=== PATIENT | female | born 1930 | race Caucasian/White ===

== ENCOUNTER 2016-09-14 08:51 | Emergency (ER) | payer OTHER ==
[2016-09-14 09:21] LABS: URINE CULTURE NEEDED? NO; URINE MICRO REVIEW NEEDED? NO; URINE SOURCE CLEAN CATCH
[2016-09-14 09:25] LABS: BILIRUBIN URINE NEGATIVE (NEGATIVE); BLOOD URINE SMALL (NEGATIVE); COLOR ORANGE; GLUCOSE URINE NEGATIVE (NEGATIVE); LEUKOCYTES URINE NEGATIVE (NEGATIVE); NITRITE URINE NEGATIVE (NEGATIVE); PH URINE 8.5; PROTEIN URINE TRACE mg/dL (NEGATIVE); SP GRAVITY URINE 1.013; TURBIDITY URINE TURBID (CLEAR); UROBILINOGEN URINE NORMAL (NORMAL)
[2016-09-14 09:27] LABS: UR EPITHELIAL CELLS <10 /HPF (<10); URINE BACTERIA NEGATIVE /HPF; URINE WBC <10 /HPF (<10)
--- NOTE | 2016-09-14 11:29 | PROVIDER DOCUMENTATION ---
HPI-Female /OB/Breast - General Chief Complaint: Flank Pain Stated Complaint: RT FLANK PAIN/VOMITING Time Seen by Provider: 09/14/16 11:01 Source: reports: patient Allergies/Adverse Reactions: Patient Allergies Allergy/AdvReac Type Severity Reaction Status Date / Time clindamycin Allergy Intermediate BLISTERS Verified 05/01/16 06:55 IN MOUTH Penicillins Allergy Intermediate RASH Verified 05/01/16 06:55 cephalexin monohydrate * AdvReac Intermediate NAUSEA Verified 05/01/16 06:55 [From Keflex] sulfamethoxazole AdvReac Intermediate NAUSEA Verified 05/01/16 06:55 [From Bactrim] trimethoprim [From Bactrim] AdvReac Intermediate NAUSEA Verified 05/01/16 06:55 Home Medications: Omeprazole [Prilosec] 20 mg PO DAILY@0700 11/25/13 Anastrozole [Arimidex] 1 mg PO DAILY 07/03/14 Citalopram [Celexa] 20 mg PO DAILY 07/03/14 Diazepam [Valium] 2 mg PO HS 07/03/14 Propafenone HCl [Rythmol] 225 mg PO TID 09/06/14 Amlodipine Besylate 5 mg PO DAILY 02/19/15 Multivitamin [Daily Vitamin] 1 each PO DAILY 02/19/15 Pravastatin Sodium 20 mg PO QHS 02/19/15 Warfarin Sodium [Coumadin] 3 mg PO DIRECTED 05/01/16 - History of Present Illness-Female /OB Nature of Presenting Problem: 85 yo WF c/o RLQ pain and vomiting. No history of stone or gross hematuria. Currently on Coumadin Does patient report she is ?: No Location of complaint: reports: RLQ Radiation: reports: none Quality of Pain: reports: pressure, sharp Severity in ED: reports: mild Onset/Duration: reports: abrupt, this morning Timing: reports: still present Context/Activities at Onset: reports: none Vaginal Symptoms: reports: no symptoms Vaginal Bleeding Amount: None Urinary Symptoms: reports: dribbling Related Symptoms: reports: no symptoms Leakage of Fluid: none Associated Symptoms: reports: vomiting Similar Symptoms Previously?: No - LMP/ History Menstrual Status: post-menopausal Review of Systems - Adult - REVIEW OF SYSTEMS - ADULT Constitutional: reports: no symptoms reported Eyes: reports: no symptoms reported Ears, Nose, Mouth & Throat: reports: hearing loss Respiratory: reports: no symptoms reported Gastrointestinal: reports: vomiting Genitourinary: reports: see HPI Integumentary: reports: no symptoms reported Neurological: reports: no symptoms reported Psychiatric: reports: no symptoms reported Endocrine: reports: no symptoms reported Hematologic/Lymphatic: reports: no symptoms reported Allergic/Immunologic: reports: no symptoms reported Past History - Adult - PAST MEDICAL HISTORY-ADULT Review of Records: reports: Old Records Reviewed, Social history reviewed & non- contributory. Cardiovascular: reports: A-Fib, CHF, HTN, hyperlipidemia Gastrointestinal: reports: diverticulosis Obstetrical/Gynecological: reports: other (Breast CA (right)) - PRIOR SURGERIES/PROCEDURES Surgical/Procedure History: reports: appendectomy, hysterectomy, joint replacement (right), other (carpal tunnel) - IMMUNIZATION STATUS Childhood Immunizations: See Nurse Assessment Flu Vaccine: See Nurse Assessment Physical Exam-General - PHYSICAL EXAM-ADULT Initial Vital Signs Reviewed: Yes - CONSTITUTIONAL General Appearance: appears well, alert, no apparent distress, thin - EYES Eyes: PERRL/EOMI - HEAD, EARS, NOSE, MOUTH & THROAT HENMT: normocephalic/atraumatic, moist mucous membranes - NECK Neck: non-tender, full range of motion, supple - RESPIRATORY Respiratory: chest non-tender, lungs clear - CARDIOVASCULAR Cardiovascular: irregularly irregular - CHEST (BREASTS) Chest/Breast: other (rt mastectomy) - GASTROINTESTINAL (ABDOMEN) Abdominal Exam: normal bowel sounds, no organomegaly, no pulsatile mass, tenderness (RLQ) - LYMPHATIC Lymphatic: no adenopathy - MUSCULOSKELETAL Back Exam: normal inspection, no CVA tenderness, no vertebral tenderness Extremity: normal range of motion, swelling - SKIN Integumentary: normal color - NEUROLOGIC Neurologic: grossly normal - PSYCHIATRIC Psych/Mental Status: normal mood/affect Progress - PLAN OF CARE/RESULTS Progress/Plan/Lab Results: Laboratory Tests 09/14/16 09/14/16 09/14/16 09:00 11:27 11:27 WBC 8.78 RBC 4.71 Hgb 14.2 Hct 43.3 MCV 91.9 MCH 30.1 MCHC 32.8 L RDW Std Deviation 13.3 Plt Count 241 MPV 9.1 Immature Gran % (Auto) 0.0 Neut % (Auto) 72.0 Lymph % (Auto) 18.5 L [place] % (Auto) 7.6 Eos % (Auto) 1.6 Baso % (Auto) 0.3 Immature Gran # (Auto) 0.00 Neut # (Auto) 6.32 Lymph # (Auto) 1.62 [place] # (Auto) 0.67 H Eos # (Auto) 0.14 Baso # (Auto) 0.03 PT INR Sodium 140 Potassium 3.9 Chloride 98 Carbon Dioxide 30 Anion Gap 12 BUN 17 Creatinine 0.7 Estimated GFR/1.73 m2 > 60 BUN/Creatinine Ratio 24 Glucose 101 Calculated Osmolality 281 Calcium 9.0 Total Bilirubin 0.60 AST 21 ALT 16 Alkaline Phosphatase 80 Total Protein 7.4 Albumin 4.3 Globulin 3.1 Albumin/Globulin Ratio 1.4 Urine Source CLEAN CATCH Urine Color ORANGE Urine Turbidity TURBID Urine pH 8.5 Ur Specific [place] 1.013 Urine Protein TRACE A Ur Glucose (Stick) NEGATIVE Ur Ketones (Stick) NEGATIVE Urine Blood SMALL A Urine Nitrite NEGATIVE Urine Bilirubin NEGATIVE Urobilinogen Dipstick NORMAL Urine Leukocytes NEGATIVE Urine WBC (Auto) <10 Urine RBC (Auto) 10-20 A U Epithel Cells (Auto) <10 Urine Bacteria (Auto) NEGATIVE 09/14/16 11:27 WBC RBC Hgb Hct MCV MCH MCHC RDW Std Deviation Plt Count MPV Immature Gran % (Auto) Neut % (Auto) Lymph % (Auto) [place] % (Auto) Eos % (Auto) Baso % (Auto) Immature Gran # (Auto) Neut # (Auto) Lymph # (Auto) [place] # (Auto) Eos # (Auto) Baso # (Auto) PT 16.3 H INR 1.53 Sodium Potassium Chloride Carbon Dioxide Anion Gap BUN Creatinine Estimated GFR/1.73 m2 BUN/Creatinine Ratio Glucose Calculated Osmolality Calcium Total Bilirubin AST ALT Alkaline Phosphatase Total Protein Albumin Globulin Albumin/Globulin Ratio Urine Source Urine Color Urine Turbidity Urine pH Ur Specific [place] Urine Protein Ur Glucose (Stick) Ur Ketones (Stick) Urine Blood Urine Nitrite Urine Bilirubin Urobilinogen Dipstick Urine Leukocytes Urine WBC (Auto) Urine RBC (Auto) U Epithel Cells (Auto) Urine Bacteria (Auto) Vital Signs Temp Pulse Resp BP Pulse Ox 09/14/16 12:38 127/69 09/14/16 09:02 97.5 F L 84 16 139/88 100 clindamycin Allergy (Intermediate, Verified 05/01/16 06:55) BLISTERS IN MOUTH Penicillins Allergy (Intermediate, Verified 05/01/16 06:55) RASH cephalexin monohydrate * [From Keflex] Adverse Reaction (Intermediate, Verified 05/01/16 06:55) NAUSEA sulfamethoxazole [From Bactrim] Adverse Reaction (Intermediate, Verified 06:55) NAUSEA trimethoprim [From Bactrim] Adverse Reaction (Intermediate, Verified 05/01/16 06 :55) NAUSEA Omeprazole [Prilosec] 20 mg PO DAILY@0700 11/25/13 Anastrozole [Arimidex] 1 mg PO DAILY 07/03/14 Citalopram [Celexa] 20 mg PO DAILY 07/03/14 Diazepam [Valium] 2 mg PO HS 07/03/14 Propafenone HCl [Rythmol] 225 mg PO TID 09/06/14 Amlodipine Besylate 5 mg PO DAILY 02/19/15 Multivitamin [Daily Vitamin] 1 each PO DAILY 02/19/15 Pravastatin Sodium 20 mg PO QHS 02/19/15 Metoprolol Succinate E.r. [Toprol Xl] 25 mg PO DAILY #30 tablet 07/29/15 Warfarin Sodium [Coumadin] 3 mg PO DIRECTED 05/01/16 I&O 09/13/16 09/14/16 09/15/16 06:59 06:59 06:59 Output Total 10 Balance -10 Laboratory 09/14/16 09/14/16 09/14/16 11:27 11:27 11:27 WBC 8.78 RBC 4.71 Hgb 14.2 Hct 43.3 MCV 91.9 MCH 30.1 MCHC 32.8 L RDW Std Deviation 13.3 Plt Count 241 MPV 9.1 Immature Gran % (Auto) 0.0 Neut % (Auto) 72.0 Lymph % (Auto) 18.5 L [place] % (Auto) 7.6 Eos % (Auto) 1.6 Baso % (Auto) 0.3 Immature Gran # (Auto) 0.00 Neut # (Auto) 6.32 Lymph # (Auto) 1.62 [place] # (Auto) 0.67 H Eos # (Auto) 0.14 Baso # (Auto) 0.03 PT 16.3 H INR 1.53 Sodium 140 Potassium 3.9 Chloride 98 Carbon Dioxide 30 Anion Gap 12 BUN 17 Creatinine 0.7 Estimated GFR/1.73 m2 > 60 BUN/Creatinine Ratio 24 Glucose 101 Calculated Osmolality 281 Calcium 9.0 Total Bilirubin 0.60 AST 21 ALT 16 Alkaline Phosphatase 80 Total Protein 7.4 Albumin 4.3 Globulin 3.1 Albumin/Globulin Ratio 1.4 Urine Source Urine Color Urine Turbidity Urine pH Ur Specific [place] Urine Protein Ur Glucose (Stick) Ur Ketones (Stick) Urine Blood Urine Nitrite Urine Bilirubin Urobilinogen Dipstick Urine Leukocytes Urine WBC (Auto) Urine RBC (Auto) U Epithel Cells (Auto) Urine Bacteria (Auto) 09/14/16 09:00 WBC RBC Hgb Hct MCV MCH MCHC RDW Std Deviation Plt Count MPV Immature Gran % (Auto) Neut % (Auto) Lymph % (Auto) [place] % (Auto) Eos % (Auto) Baso % (Auto) Immature Gran # (Auto) Neut # (Auto) Lymph # (Auto) [place] # (Auto) Eos # (Auto) Baso # (Auto) PT INR Sodium Potassium Chloride Carbon Dioxide Anion Gap BUN Creatinine Estimated GFR/1.73 m2 BUN/Creatinine Ratio Glucose Calculated Osmolality Calcium Total Bilirubin AST ALT Alkaline Phosphatase Total Protein Albumin Globulin Albumin/Globulin Ratio Urine Source CLEAN CATCH Urine Color ORANGE Urine Turbidity TURBID Urine pH 8.5 Ur Specific [place] 1.013 Urine Protein TRACE A Ur Glucose (Stick) NEGATIVE Ur Ketones (Stick) NEGATIVE Urine Blood SMALL A Urine Nitrite NEGATIVE Urine Bilirubin NEGATIVE Urobilinogen Dipstick NORMAL Urine Leukocytes NEGATIVE Urine WBC (Auto) <10 Urine RBC (Auto) 10-20 A U Epithel Cells (Auto) <10 Urine Bacteria (Auto) NEGATIVE Vital Signs Temp Pulse Resp BP Pulse Ox 09/14/16 12:38 127/69 09/14/16 09:02 97.5 F L 84 16 139/88 100 clindamycin Allergy (Intermediate, Verified 05/01/16 06:55) BLISTERS IN MOUTH Penicillins Allergy (Intermediate, Verified 05/01/16 06:55) RASH cephalexin monohydrate * [From Keflex] Adverse Reaction (Intermediate, Verified 05/01/16 06:55) NAUSEA sulfamethoxazole [From Bactrim] Adverse Reaction (Intermediate, Verified 06:55) NAUSEA trimethoprim [From Bactrim] Adverse Reaction (Intermediate, Verified 05/01/16 06 :55) NAUSEA Omeprazole [Prilosec] 20 mg PO DAILY@0700 11/25/13 Anastrozole [Arimidex] 1 mg PO DAILY 10/23/14 Citalopram [Celexa] 20 mg PO DAILY 07/03/14 Diazepam [Valium] 2 mg PO HS 07/03/14 Propafenone HCl [Rythmol] 225 mg PO TID 09/06/14 Amlodipine Besylate 5 mg PO DAILY 02/19/15 Multivitamin [Daily Vitamin] 1 each PO DAILY 02/19/15 Pravastatin Sodium 20 mg PO QHS 02/19/15 Metoprolol Succinate E.r. [Toprol Xl] 25 mg PO DAILY #30 tablet 07/29/15 Warfarin Sodium [Coumadin] 3 mg PO DIRECTED 05/01/16 I&O 09/13/16 09/14/16 09/15/16 06:59 06:59 06:59 Output Total 10 Balance -10 Laboratory 09/14/16 09/14/16 09/14/16 11:27 11:27 11:27 WBC 8.78 RBC 4.71 Hgb 14.2 Hct 43.3 MCV 91.9 MCH 30.1 MCHC 32.8 L RDW Std Deviation 13.3 Plt Count 241 MPV 9.1 Immature Gran % (Auto) 0.0 Neut % (Auto) 72.0 Lymph % (Auto) 18.5 L [place] % (Auto) 7.6 Eos % (Auto) 1.6 Baso % (Auto) 0.3 Immature Gran # (Auto) 0.00 Neut # (Auto) 6.32 Lymph # (Auto) 1.62 [place] # (Auto) 0.67 H Eos # (Auto) 0.14 Baso # (Auto) 0.03 PT 16.3 H INR 1.53 Sodium 140 Potassium 3.9 Chloride 98 Carbon Dioxide 30 Anion Gap 12 BUN 17 Creatinine 0.7 Estimated GFR/1.73 m2 > 60 BUN/Creatinine Ratio 24 Glucose 101 Calculated Osmolality 281 Calcium 9.0 Total Bilirubin 0.60 AST 21 ALT 16 Alkaline Phosphatase 80 Total Protein 7.4 Albumin 4.3 Globulin 3.1 Albumin/Globulin Ratio 1.4 Urine Source Urine Color Urine Turbidity Urine pH Ur Specific [place] Urine Protein Ur Glucose (Stick) Ur Ketones (Stick) Urine Blood Urine Nitrite Urine Bilirubin Urobilinogen Dipstick Urine Leukocytes Urine WBC (Auto) Urine RBC (Auto) U Epithel Cells (Auto) Urine Bacteria (Auto) 09/14/16 09:00 WBC RBC Hgb Hct MCV MCH MCHC RDW Std Deviation Plt Count MPV Immature Gran % (Auto) Neut % (Auto) Lymph % (Auto) [place] % (Auto) Eos % (Auto) Baso % (Auto) Immature Gran # (Auto) Neut # (Auto) Lymph # (Auto) [place] # (Auto) Eos # (Auto) Baso # (Auto) PT INR Sodium Potassium Chloride Carbon Dioxide Anion Gap BUN Creatinine Estimated GFR/1.73 m2 BUN/Creatinine Ratio Glucose Calculated Osmolality Calcium Total Bilirubin AST ALT Alkaline Phosphatase Total Protein Albumin Globulin Albumin/Globulin Ratio Urine Source CLEAN CATCH Urine Color ORANGE Urine Turbidity TURBID Urine pH 8.5 Ur Specific [place] 1.013 Urine Protein TRACE A Ur Glucose (Stick) NEGATIVE Ur Ketones (Stick) NEGATIVE Urine Blood SMALL A Urine Nitrite NEGATIVE Urine Bilirubin NEGATIVE Urobilinogen Dipstick NORMAL Urine Leukocytes NEGATIVE Urine WBC (Auto) <10 Urine RBC (Auto) 10-20 A U Epithel Cells (Auto) <10 Urine Bacteria (Auto) NEGATIVE - CT/MRI 1 CT Study: Abdomen, Pelvis (Terrible constipation, vaginal wall thickening but no renal stones or hydronephrosis) Departure - Departure Time of Disposition Order: 13:42 DIAGNOSIS: Constipation Qualifiers: Constipation type: unspecified constipation type Qualified Code(s): K59.00 - Constipation, unspecified Disposition: HOME 01 Certified Medical Emergency: Emergent Condition: Good Additional Instructions: I had a long talk with her daughter who will give her a TWE and one bottle of Mag citrate.
[2016-09-14 11:36] LABS: MANUAL DIFF NEEDED? NO
[2016-09-14 11:38] LABS: BASO% 0.3 % (0.0-0.8); EOS# 0.14 X1000 (0.0-0.7); EOS% 1.6 % (0.0-10.0); HEMATOCRIT 43.3 % (37.0-47.0); HEMOGLOBIN 14.2 g/dL (12.0-16.0); LYMPH# 1.62 X1000 (1.2-3.4); LYMPH% 18.5 % (20.5-51.1); MCH 30.1 PG (27-31); MCHC 32.8 g/dL (33-37); MCV 91.9 FL (81-99); MONO# 0.67 X1000 (0.11-0.59); MONO% 7.6 % (1.7-9.3); MPV 9.1 FL (7.4-10.4); PLT 241 X1000 (130-400); RBC 4.71 XMIL (4.2-5.4)
[2016-09-14 11:54] LABS: INR 1.53; PROTIME 16.3 Seconds (9.2-11.7)
[2016-09-14 12:05] LABS: AGAP 12; ALBUMIN 4.3 g/dL (3.5-5.0); ALKALINE PHOSPHATASE 80 U/L (32-104); BUN 17 mg/dL (8-22); CHLORIDE 98 mmol/L (98-107); COSMO 281; GOT 21 U/L (10-30); GPT 16 U/L (10-36); POTASSIUM 3.9 mmol/L (3.5-5.1); SODIUM 140 mmol/L (136-145); TCO2 30 mmol/L (25-35); TOTAL PROTEIN 7.4 g/dL (6.3-8.3)
--- NOTE | 2016-09-14 12:43 | Diag Imaging Result Document ---
PROCEDURE NAME: RENAL STONE SEARCH - 09/14/2016 CT ABDOMEN AND PELVIS: COMPARISON: 11/19/2013. FINDINGS: There are no infiltrates in the lung bases. There is a large hiatal hernia, stable from prior. Stable scattered renal cysts. No radiodense renal stones. No hydronephrosis or hydroureter. There is fullness of the left wall of the vagina. Uterus is absent. Urinary bladder and rectum are normal. There is severe constipation. Severe scoliosis. No acute bony lesions. IMPRESSION: 1. Fullness at the left wall of the vagina. Recommend pelvic examination. 2. Severe constipation. 3. Negative for renal stone disease.
[2016-09-14 14:00] VITALS: BP 127/79
== END 2016-09-14 14:00 | disposition home or self-care (01) ==
LOC: ED 08:51
DX: K59.00 Constipation, unspecified (principal); R10.31 Right lower quadrant pain; R11.10 Vomiting, unspecified; M79.89 Other specified soft tissue disorders; H91.90 Unspecified hearing loss, unspecified ear; I48.91 Unspecified atrial fibrillation; I10 Essential (primary) hypertension; E78.5 Hyperlipidemia, unspecified; Z79.01 Long term (current) use of anticoagulants; Z79.899 Other long term (current) drug therapy; Z85.3 Personal history of malignant neoplasm of breast; Z96.60 Presence of unspecified orthopedic joint implant; Z90.11 Acquired absence of right breast and nipple
CPT/HCPCS: 74176; 80053; 81001; 85025; 85610

== ENCOUNTER 2017-04-30 21:52 | Inpatient (IN) ==
[2017-04-30 23:15] LABS: MANUAL DIFF NEEDED? NO
[2017-04-30 23:18] LABS: BASO% 0.1 % (0.0-0.8); EOS# 0.04 X1000 (0.0-0.7); EOS% 0.4 % (0.0-10.0); HEMOGLOBIN 11.8 g/dL (12.0-16.0); IMM GRAN# 0.03 X1000 (0.0-0.04); IMM GRAN% 0.3 % (0.0-0.5); LYMPH# 0.78 X1000 (1.2-3.4); LYMPH% 8.5 % (20.5-51.1); MCH 29.2 PG (27-31); MCHC 32.8 g/dL (33-37); MCV 89.1 FL (81-99); MONO% 9.8 % (1.7-9.3); MPV 9.7 FL (7.4-10.4); NEUT% 80.9 % (42.2-75.2); PLT 181 X1000 (130-400); RBC 4.04 XMIL (4.2-5.4)
[2017-04-30 23:42] LABS: INR 2.34 (0.86-1.15); PROTIME 27.5 Seconds (12.1-15.5)
[2017-04-30 23:43] LABS: PTT PL 39.4 Seconds (22.6-43.9)
[2017-04-30 23:44] LABS: AGAP 13; ALBUMIN 3.8 g/dL (3.5-5.0); ALKALINE PHOSPHATASE 55 U/L (32-104); BUN 19 mg/dL (8-22); CALCIUM 8.4 mg/dL (8.8-10.2); CHLORIDE 105 mmol/L (98-107); COSMO 283; GOT 20 U/L (10-30); GPT 17 U/L (10-36); POTASSIUM 3.6 mmol/L (3.5-5.1); SODIUM 139 mmol/L (136-145); TCO2 21 mmol/L (25-35); TOTAL PROTEIN 6.9 g/dL (6.3-8.3)
[2017-04-30] MEDS ORDERED: LEVAQUIN 500 MG/D5W 500 MG/100 ML IVPB IV ONE (23:54)
[2017-05-01] MEDS: NS 1,000 ML IV PRN ×2 (00:10→15:38)
--- NOTE | 2017-05-01 00:11 | EKG Report ---
Test Performed on : 04/30/2017 10:57:02 PM Test Reason : Chest Pain Blood Pressure : / mmHG Vent. Rate : 087 BPM Atrial Rate : 087 BPM P-R Int : 136 ms QRS Dur : 130 ms QT Int : 392 ms P-R-T Axes : 000 -18 038 degrees QTc Int : 471 ms Normal sinus rhythm. 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
--- NOTE | 2017-05-01 00:29 | PROVIDER DOCUMENTATION ---
This chart was entered by Nupur Ortega Scribe, acting as scribe for Abdoulaye Felix MD. HPI-General Adult - General Chief Complaint: Extremity Pain Stated Complaint: SWOLLEN LT HAND Time Seen by Provider: 04/30/17 23:37 Source: patient, family Unable to obtain history due to:: other (patient hard of hearing) Allergies/Adverse Reactions: Patient Allergies Allergy/AdvReac Type Severity Reaction Status Date / Time clindamycin Allergy Intermediate BLISTERS Verified 01/11/17 14:07 IN MOUTH Penicillins Allergy Intermediate RASH Verified 01/11/17 14:07 cephalexin monohydrate * AdvReac Intermediate NAUSEA Verified 01/11/17 14:07 [From Keflex] sulfamethoxazole AdvReac Intermediate NAUSEA Verified 01/11/17 14:07 [From Bactrim] trimethoprim [From Bactrim] AdvReac Intermediate NAUSEA Verified 01/11/17 14:07 Home Medications: Home Medication List Medication Instructions Recorded Confirmed Last Taken Type Omeprazole [Prilosec] 20 mg PO DAILY@0700 11/25/13 04/30/17 09/13/16 07:00 History 20 MG Anastrozole [Arimidex] 1 mg PO DAILY 07/03/14 04/30/17 09/13/16 07:00 History 1 MG Citalopram [Celexa] 20 mg PO DAILY 07/03/14 04/30/17 09/13/16 07:00 History 20 MG Diazepam [Valium] 2 mg PO HS 07/03/14 04/30/17 09/13/16 07:00 History 2 MG Propafenone HCl [Rythmol] 225 mg PO TID 09/06/14 04/30/17 09/13/16 07:00 History 225 MG Amlodipine Besylate 5 mg PO DAILY 02/19/15 04/30/17 09/13/16 07:00 History 5 MG Multivitamin [Daily Vitamin] 1 each PO DAILY 02/19/15 04/30/17 09/13/16 07:00 History 1 EACH Pravastatin Sodium 20 mg PO QHS 02/19/15 04/30/17 09/13/16 07:00 History 20 MG Metoprolol Succinate E.r. [Toprol 25 mg PO DAILY #30 tablet 07/29/15 04/30/17 07:00 Rx Xl] 25 MG Warfarin Sodium [Coumadin] 3 mg PO DIRECTED 05/01/16 04/30/17 09/13/16 07:00 History 3 MG - History of Present Illness -Gen Adult Nature of Presenting Problems: Patient is an 86 year old female who presents in the ED with daughter with complaints of left hand pain/swelling. Daughter states patient began having swelling of her left hand on morning, and states patient's swelling started at her left first and second finger joints where she has known arthritis. Daughter also states patient was prescribed Cipro on Monday but states she stopped giving the patient the antibiotic after seeing her hand swelling. Daughter reports patient's hand has had increased swelling since onset as well as warmth and redness, and reports patient has taken Tylenol #3 for her pain (prescribed for her arthritis) with no improvement. Patient states she "thinks she may have had chest pain earlier this week." Location of Pain/Injury: reports: hand(s) (left) Pain Radiation: reports: no radiation Quality of Pain: reports: throbbing Severity: reports: moderate Onset/Duration: reports: abrupt, 4 days ago Timing: reports: still present, changing over time, getting worse Context/Activities at Onset: reports: none Modifying Factors: improves with: nothing Associated Symptoms: reports: chest pain Similar Symptoms Previously?: No Recently seen or treated by another doctor?: No Review of Systems - Adult - REVIEW OF SYSTEMS - ADULT Constitutional: reports: no symptoms reported Eyes: reports: no symptoms reported Ears, Nose, Mouth & Throat: reports: no symptoms reported Cardiovascular: reports: chest pain Respiratory: reports: no symptoms reported Gastrointestinal: reports: no symptoms reported Genitourinary: reports: no symptoms reported Musculoskeletal: reports: other (left hand pain/swelling/redness/warmth) Integumentary: reports: no symptoms reported Neurological: reports: no symptoms reported Psychiatric: reports: no symptoms reported Endocrine: reports: no symptoms reported Hematologic/Lymphatic: reports: no symptoms reported Allergic/Immunologic: reports: no symptoms reported All Other Systems: Reviewed and Negative Past History - Adult - PAST MEDICAL HISTORY-ADULT Review of Records: reports: Old Records Reviewed, Nursing Assessment Review, Medications Reviewed Major Childhood Illnesses: reports: denies history Cardiovascular: reports: A-Fib, CHF, HTN, hyperlipidemia Respiratory: reports: denies history Gastrointestinal: reports: diverticulosis Obstetrical/Gynecological: reports: other (Breast CA (right)) Genitourinary: reports: denies history Musculoskeletal: reports: arthritis Neurological: reports: denies history Psychiatric: reports: denies history Endocrine/Immune: reports: denies history 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 - PRIOR SURGERIES/PROCEDURES Surgical/Procedure History: reports: appendectomy, hysterectomy, joint replacement (right), other (carpal tunnel) - IMMUNIZATION STATUS Childhood Immunizations: See Nurse Assessment Flu Vaccine: See Nurse Assessment - FAMILY HISTORY Family History: reviewed, not pertinent - SOCIAL HISTORY Smoking: denies Substance Use: none/never Alcohol Use Frequency: never Living Situation: family Physical Exam-General - PHYSICAL EXAM-ADULT Initial Vital Signs Reviewed: Yes - CONSTITUTIONAL General Appearance: alert, no apparent distress - EYES Eyes: PERRL/EOMI, pink conjunctivae - HEAD, EARS, NOSE, MOUTH & THROAT HENMT: normocephalic/atraumatic, moist mucous membranes - NECK Neck: non-tender, full range of motion, supple, normal inspection - RESPIRATORY Respiratory: chest non-tender, lungs clear, normal breath sounds, no pleuratic chest pain, no respiratory distress, no accessory muscle use - CARDIOVASCULAR Cardiovascular: normal peripheral pulses, no edema, no gallop, no JVD, systolic murmur (2/6), irregularly irregular - GASTROINTESTINAL (ABDOMEN) Abdominal Exam: non tender, soft, no organomegaly, no pulsatile mass - LYMPHATIC Lymphatic: no adenopathy - MUSCULOSKELETAL Back Exam: normal inspection, no CVA tenderness, no vertebral tenderness Extremity: no pedal edema, no calf tenderness, normal capillary refill, pelvis stable, other (left hand with swelling, erythema, warmth to touch, and tenderness to palpation; rheumatoid arthritis of bilateral hands.) - SKIN Integumentary: normal color, normal turgor, warm/dry - NEUROLOGIC Neurologic: grossly normal, no motor/sensory deficits - PSYCHIATRIC Psych/Mental Status: normal mood/affect, oriented x 3 Progress - PLAN OF CARE/RESULTS Progress/Plan/Lab Results: Vital Signs - 8 hr 04/30/17 22:30 Temperature 100.5 F H Pulse Rate 90 Respiratory Rate 20 Blood Pressure 108/64 O2 Sat by Pulse Oximetry 96 Laboratory Results - last 24 hr 04/30/17 04/30/17 04/30/17 22:57 22:57 22:57 WBC 9.23 RBC 4.04 L Hgb 11.8 L Hct 36.0 L MCV 89.1 MCH 29.2 MCHC 32.8 L RDW Std Deviation 14.6 H Plt Count 181 MPV 9.7 Immature Gran % (Auto) 0.3 Neut % (Auto) 80.9 H Lymph % (Auto) 8.5 L [place] % (Auto) 9.8 H Eos % (Auto) 0.4 Baso % (Auto) 0.1 Immature Gran # (Auto) 0.03 Neut # (Auto) 7.47 H Lymph # (Auto) 0.78 L [place] # (Auto) 0.90 H Eos # (Auto) 0.04 Baso # (Auto) 0.01 PT 27.5 H INR 2.34 H APTT (Factor Assay) 39.4 Sodium 139 Potassium 3.6 Chloride 105 Carbon Dioxide 21 L Anion Gap 13 BUN 19 Creatinine 0.8 Estimated GFR/1.73 m2 > 60 BUN/Creatinine Ratio 24 Glucose 165 H Calculated Osmolality 283 Calcium 8.4 L Total Bilirubin 0.40 AST 20 ALT 17 Alkaline Phosphatase 55 Total Protein 6.9 Albumin 3.8 Globulin 3.0 Albumin/Globulin Ratio 1.0 Orders Category Date Time Status CBC WITH DIFF [HEME] Stat Lab 04/30/17 22:57 Completed CK PROFILE [SP CHEM] Stat Lab 04/30/17 22:57 Received COMPREHENSIVE METABOLIC PANEL [CHEM] Stat Lab 04/30/17 22:57 Com[address]IME WITH INR PL [COAG] Routine Lab 04/30/17 22:[address] [COAG] Routine Lab 04/30/17 22:57 Completed TROPONIN T Stat Lab 04/30/17 22:57 Received Result Diagrams: 04/30/17 22:57 04/30/17 22:57 Departure - Departure Date of Disposition Decision: 05/01/17 Time of Disposition Decision: 00:28 DIAGNOSIS: Cellulitis of hand Disposition: ADMITTED INPATIENT 09 Certified Medical Emergency: Emergent Condition: Fair Referrals and Follow-Ups: Nader Mullins MD [Primary Care Provider] - - Critical Care Note This patient required my direct & personal management of CC.: No Attestation - Physician/ ANKUR Attestation Patient care was provided by Advanced Practice Provider:: No The physician spent face to face time with patient:: Yes Advanced Practice Provider documentation review:: Supervising physician onsite and consulted in the evaluation and care of this patient. The physician did have a face to face encounter with the patient. This chart was documented by the indicated scribe, (Nupur Ortega, Levon) and accurately reflects the services I performed and decisions made by me, Abdoulaye Felix MD, as attested by the provider's signature.
[2017-05-01] MEDS ORDERED: LEVAQUIN 500 MG/D5W 500 MG/100 ML IVPB IV SCH (01:06)
[2017-05-01] MEDS: DOXYCYCLINE PO SCH ×2 (04:06→21:01)
[2017-05-01] MEDS: NORCO-7.5 PO PRN ×3 (05:39→21:02)
[2017-05-01] MEDS: NORVASC PO SCH (10:06)
[2017-05-01] MEDS: RYTHMOL SR PO SCH ×3 (10:06→16:22)
[2017-05-01] MEDS: ARIMIDEX PO SCH (10:06)
[2017-05-01] MEDS: THERA M PLUS PO SCH (10:06)
[2017-05-01] MEDS: CELEXA PO SCH (10:07)
[2017-05-01] MEDS: TOPROL XL PO SCH (10:07)
--- NOTE | 2017-05-01 15:12 | HISTORY AND PHYSICAL ---
CHIEF COMPLAINT: Ms. Lewis is a very pleasant 86-year-old female, who presented to the emergency department last night with complaint of having pain and swelling, along with redness that was progressively getting worse for the past 2 days. She denied having any other problems or complaints. She denied having any fever, although she was noted to have low-grade fever at the emergency department. PAST MEDICAL HISTORY: 1. Paroxysmal atrial fibrillation. 2. Congestive heart failure. 3. Coronary artery disease. 4. Hypertension. 5. Dyslipidemia. 6. Gastroesophageal reflux disease. 7. Anxiety disorder. PAST SURGICAL HISTORY: 1. Right radical mastectomy for breast cancer. 2. Appendectomy. 3. Bladder surgery. 4. Bilateral carpal tunnel surgery. 5. Right foot surgery. 6. Total hysterectomy. 7. Rotator cuff surgery on her right shoulder. SOCIAL HISTORY: Patient does not smoke any tobacco products, nor does she drink any alcohol. She does not use any recreational drugs. FAMILY HISTORY: There is family history of Alzheimer's dementia and heart disease. She also has some family members with prostate cancer. ALLERGIES: The patient reports to be allergic to clindamycin, penicillin, Keflex, and sulfa drugs. CURRENT HOME MEDICATIONS: 1. Amlodipine 5 mg orally once daily. 2. Anastrozole 1 mg orally once daily. 3. Citalopram 20 mg orally once daily. 4. Diazepam 2 mg orally once daily at bedtime, as needed for insomnia. 5. Metoprolol ER 25 mg orally once daily. 6. Omeprazole 20 mg orally once daily. 7. Pravastatin 20 mg orally once daily at bedtime. 8. Propafenone 225 mg orally 3 times a day. 9. Multivitamins orally once daily. 10. Tramadol 50 mg three times a day as needed for pain. 11. Warfarin 3-4 mg orally once daily as per the [facility]. REVIEW OF SYSTEMS: A full review of system could not be obtained since patient is a poor historian. PHYSICAL EXAMINATION: VITAL SIGNS: Temperature 98.5 degrees, with a maximum temperature last night of 100.5 degrees Fahrenheit, pulse rate 91 beats per minute, respiratory rate 18 per minute, blood pressure 96/54, pulse ox 96% on room air. GENERAL: Patient is alert and oriented x3. She does not appear to be in any acute distress. HEENT: Within normal limits. NECK: Supple without any thyromegaly. LYMPHATICS: No lymphadenopathy noted in the neck region. CHEST: Chest wall is nontender. CARDIOVASCULAR SYSTEM: First and second heart sounds are audible without any murmurs or gallops. RESPIRATORY SYSTEM: No respiratory distress noted. Bilateral lung air entry is good without any rales or rhonchi. GASTROINTESTINAL SYSTEM: Abdomen is soft and nondistended. It is soft and nontender on palpation. Normal bowel sounds are present. MUSCULOSKELETAL SYSTEM: Range of motion in most of the joints somewhat limited secondary to osteoarthritis. There is some left wrist area and edema, along with tenderness and erythema. NEUROLOGIC: No focal deficits are present. PSYCHIATRIC: Normal affect noted. GENITOURINARY: Deferred. INTEGUMENTARY: Skin in the left distal forearm and left wrist area, along with the left hand, noted to have increased warmth and tenderness on palpation. There is also erythema in the area locally. DIAGNOSTIC DATA: CBC shows WBC count of 9.23, hemoglobin 11.8, hematocrit 36.0, and platelet count 181,000. Neutrophils were found to be 18.9%. INR is within therapeutic range at 2.34 and comprehensive metabolic panel was nondiagnostic, except for glucose level of 165. Troponin levels were negative. An ECG obtained at the emergency department showed sinus rhythm with a ventricular rate of 87 beats per minute and poor R-wave progression. No acute ischemic abnormalities are seen. IMPRESSION: 1. Cellulitis of the left hand and left distal forearm in this 86-year-old female, who also has a fever secondary to cellulitis. 2. Multiple comorbid conditions including hypertension, paroxysmal atrial fibrillation, coronary artery disease, and congestive heart failure. PLAN: Patient is admitted to the medical floor on telemetry and we are going to continue her routine home medications. She has been started on levofloxacin intravenously, along with oral doxycycline which will be continued. Further recommendations will be given as per patient's response to these antibiotics. cc: Nader Mullins MD
[2017-05-01] MEDS ORDERED: BLISTEX MEDICATED BERRY LIP BALM TOP PRN (15:14)
[2017-05-01] MEDS: VALIUM PO SCH (21:01)
[2017-05-01] MEDS: PRAVACHOL PO SCH (21:01)
[2017-05-01] MEDS: COUMADIN PO SCH (21:01)
[2017-05-02] MEDS: LEVAQUIN 500 MG/D5W 500 MG/100 ML IVPB IV SCH (01:14)
[2017-05-02] MEDS: NORCO-7.5 PO PRN ×3 (04:51→22:47)
[2017-05-02] MEDS: PRILOSEC PO SCH (06:09)
[2017-05-02 06:33] LABS: INR 2.26 (0.86-1.15); PROTIME 26.7 Seconds (12.1-15.5)
[2017-05-02] MEDS: TOPROL XL PO SCH (10:11)
[2017-05-02] MEDS: DOXYCYCLINE PO SCH ×2 (10:11→20:19)
[2017-05-02] MEDS: THERA M PLUS PO SCH (10:11)
[2017-05-02] MEDS: NORVASC PO SCH (10:11)
[2017-05-02] MEDS: RYTHMOL SR PO SCH ×3 (10:11→17:26)
[2017-05-02] MEDS: ARIMIDEX PO SCH (10:11)
[2017-05-02] MEDS: CELEXA PO SCH (10:11)
[2017-05-02] MEDS: COUMADIN PO SCH (20:19)
[2017-05-02] MEDS: VALIUM PO SCH (20:19)
[2017-05-02] MEDS: PRAVACHOL PO SCH (20:19)
[2017-05-03] MEDS: LEVAQUIN 500 MG/D5W 500 MG/100 ML IVPB IV SCH (00:03)
[2017-05-03] MEDS: PRILOSEC PO SCH (06:08)
[2017-05-03 07:00] LABS: INR 1.98 (0.86-1.15); PROTIME 24.1 Seconds (12.1-15.5)
[2017-05-03] MEDS: NORVASC PO SCH (08:12)
[2017-05-03] MEDS: ARIMIDEX PO SCH (08:12)
[2017-05-03] MEDS: RYTHMOL SR PO SCH ×3 (08:12→20:33)
[2017-05-03] MEDS: SOLU-MEDROL IV SCH ×3 (08:12→23:04)
[2017-05-03] MEDS: DOXYCYCLINE PO SCH ×2 (08:13→20:33)
[2017-05-03] MEDS: TOPROL XL PO SCH (08:13)
[2017-05-03] MEDS: CELEXA PO SCH (08:13)
[2017-05-03] MEDS: THERA M PLUS PO SCH (08:13)
[2017-05-03] MEDS: NORCO-7.5 PO PRN ×2 (15:20→23:08)
[2017-05-03] MEDS: VALIUM PO SCH (20:33)
[2017-05-03] MEDS: COUMADIN PO SCH (20:33)
[2017-05-03] MEDS: PRAVACHOL PO SCH (20:33)
[2017-05-04] MEDS: LEVAQUIN 500 MG/D5W 500 MG/100 ML IVPB IV SCH (00:04)
[2017-05-04 06:24] LABS: INR 1.72 (0.86-1.15); PROTIME 21.5 Seconds (12.1-15.5)
[2017-05-04] MEDS: PRILOSEC PO SCH (06:31)
[2017-05-04] MEDS ORDERED: COUMADIN PO ONE (07:22)
[2017-05-04] MEDS: RYTHMOL SR PO SCH ×3 (09:12→17:55)
[2017-05-04] MEDS: ARIMIDEX PO SCH (09:12)
[2017-05-04] MEDS: THERA M PLUS PO SCH (09:12)
[2017-05-04] MEDS: NORVASC PO SCH (09:12)
[2017-05-04] MEDS: CELEXA PO SCH (09:12)
[2017-05-04] MEDS: TOPROL XL PO SCH (09:12)
[2017-05-04] MEDS: DOXYCYCLINE PO SCH ×2 (09:15→20:33)
[2017-05-04] MEDS ORDERED: HALDOL IM ONE (15:06)
[2017-05-04] MEDS ORDERED: HALDOL IV PRN ×3 (18:27→18:36)
[2017-05-04] MEDS ORDERED: BENADRYL IV PRN (18:30)
[2017-05-04] MEDS: COUMADIN PO SCH (20:33)
[2017-05-04] MEDS: PRAVACHOL PO SCH (20:33)
[2017-05-04] MEDS: NORCO-7.5 PO PRN (20:34)
[2017-05-04] MEDS: VALIUM PO SCH (20:34)
[2017-05-04] MEDS ORDERED: LEVAQUIN PO SCH (21:00)
[2017-05-05 04:46] VITALS: BP 149/92
[2017-05-05] MEDS: PRILOSEC PO SCH (06:14)
[2017-05-05 06:22] LABS: MANUAL DIFF NEEDED? NO
[2017-05-05 06:34] LABS: BASO% 0.2 % (0.0-0.8); HEMATOCRIT 40.6 % (37.0-47.0); HEMOGLOBIN 13.4 g/dL (12.0-16.0); IMM GRAN# 0.02 X1000 (0.0-0.04); IMM GRAN% 0.2 % (0.0-0.5); LYMPH# 1.37 X1000 (1.2-3.4); LYMPH% 12.4 % (20.5-51.1); MCH 29.1 PG (27-31); MCV 88.1 FL (81-99); MONO# 0.69 X1000 (0.11-0.59); MONO% 6.2 % (1.7-9.3); MPV 8.8 FL (7.4-10.4); PLT 226 X1000 (130-400); RBC 4.61 XMIL (4.2-5.4)
[2017-05-05 06:57] LABS: INR 2.04 (0.86-1.15); PROTIME 24.7 Seconds (12.1-15.5)
[2017-05-05 07:11] LABS: AGAP 10; ALBUMIN 3.4 g/dL (3.5-5.0); ALKALINE PHOSPHATASE 57 U/L (32-104); BUN 17 mg/dL (8-22); CALCIUM 8.1 mg/dL (8.8-10.2); CHLORIDE 106 mmol/L (98-107); COSMO 284; GOT 28 U/L (10-30); GPT 18 U/L (10-36); MAGNESIUM 2.1 mg/dL (1.5-2.7); POTASSIUM 3.2 mmol/L (3.5-5.1); SODIUM 142 mmol/L (136-145); TCO2 26 mmol/L (25-35); TOTAL PROTEIN 6.6 g/dL (6.3-8.3)
[2017-05-05] MEDS ORDERED: KLOR-CON PO ONE (07:59)
[2017-05-05] MEDS: RYTHMOL SR PO SCH ×2 (09:24→12:10)
[2017-05-05] MEDS: ARIMIDEX PO SCH (09:24)
[2017-05-05] MEDS: CELEXA PO SCH (09:25)
[2017-05-05] MEDS: THERA M PLUS PO SCH (09:25)
[2017-05-05] MEDS: NORVASC PO SCH (09:25)
[2017-05-05] MEDS: DOXYCYCLINE PO SCH (09:25)
[2017-05-05] MEDS: TOPROL XL PO SCH (09:32)
--- NOTE | 2017-05-05 18:34 | DISCHARGE SUMMARY ---
ADMISSION DATE: 05/01/2017 DISCHARGE DATE: 05/05/2017 DISCHARGE DIAGNOSES: 1. Cellulitis of left hand and left distal forearm. 2. 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 3. Coronary artery disease. 4. Paroxysmal atrial fibrillation. 5. Hypertension. HOSPITAL COURSE: Ms. Lewis is a very pleasant, 86-year-old female, who presented to the emergency department with 2 day history of progressively worsening swelling along with redness of her left forearm and left hand. She was diagnosed as having cellulitis and was admitted to the hospital for further care. She was treated with IV levofloxacin along with oral doxycycline, with which her condition improved. She did have some increased swelling and redness of the left elbow area that was more consistent with some allergic phenomena. She was treated with IV steroids with which her condition improved. Her overall condition has improved and therefore , I am going to let her go home today. DISCHARGE MEDICATIONS: 1. Doxycycline 100 mg orally twice daily for 5 days. 2. Amlodipine 5 mg orally once daily. 3. Anastrazole 1 mg orally once daily. 4. Citalopram 20 mg orally once daily. 5. Diazepam 2 mg orally once daily at bedtime as needed for insomnia. 6. Metoprolol ER 25 mg orally once daily. 7. Omeprazole 20 mg orally once daily. 8. Pravastatin 20 mg orally once daily at bedtime. 9. Propafenone 225 mg orally 3 times a day. 10. Multivitamin orally once daily. 11. Tramadol 50 mg 3 times a day as needed for pain. 12. Warfarin 3-4 mg orally once daily as per the [facility]. FOLLOWUP: She will follow with me at the office in approximately 4 days. CONDITION: Stable. DISPOSITION: Home with home health. TIME SPENT: A total of more than 40 minutes were spent during the discharge process. cc: Nader Mullins MD MTDD
== END 2017-05-05 12:52 | disposition home health service (06) ==
LOC: P.ED 21:52 → P.MEDSURG 05-01 00:44 → SUATTDRO 05-01 00:44 → P.MEDSURG 05-01 04:32
PROVIDERS: ADMIT Internal Medicine; ATTEND Internal Medicine